=== PATIENT | female | born 1955 | race Caucasian/White ===

== ENCOUNTER 2021-06-19 05:23 | Day surgery (SDC) | payer BC ==
[~2021-06-19] VITALS: Ht 174 cm; Wt 76.7 kg
[2021-06-19] MEDS ORDERED: SYNTHROID0.075 MG/T PO (06:14)
[2021-06-19] MEDS ORDERED: KLOR-CON 1010 MEQ PO (06:14)
[2021-06-19] MEDS ORDERED: PRINIVIL10 MG PO (06:14)
[2021-06-19] MEDS ORDERED: LASIX 20MG TABL20 MG PO (06:15)
[2021-06-19] MEDS ORDERED: MYRBETR50MG PO (06:15)
[2021-06-19] MEDS ORDERED: CENTRUM SILVER1 TAB (06:15)
[2021-06-19] MEDS ORDERED: VITAMINC1000TA PO (06:16)
[2021-06-19] MEDS ORDERED: CALCIUM 600-D 61 TAB PO (06:16)
[2021-06-19] MEDS ORDERED: VITAMIN D31000 I1 PO (06:17)
[2021-06-19] MEDS ORDERED: OMEGA-3 1000 MG1 CAP PO (06:17)
[2021-06-19] MEDS ORDERED: SUPER CALCIUM W1 TA1 PO (06:17)
[2021-06-19] MEDS ORDERED: PHARMASSURE ZIN50 MG PO (06:17)
[2021-06-19] MEDS ORDERED: DIGESTIVE ADVA1 EAC3 PO (06:18)
[2021-06-19] MEDS ORDERED: OSTEO-BI-FLEX 21 TAB PO (06:18)
[2021-06-19] MEDS ORDERED: HAIRSKINNAILS PO (06:18)
[2021-06-19 07:28] VITALS: BP 115/67; PULSE 62; TEMP 97.3
[2021-06-19 08:05] VITALS: BP 136/103; PULSE 75; TEMP 99
[2021-06-19 08:20] VITALS: BP 118/73; PULSE 70
[2021-06-19 08:35] VITALS: BP 110/83; PULSE 64
== END 2021-06-19 09:45 | disposition home or self-care (01) ==
LOC: SDCO 05:23 → EDSTATUS 07:30 → SDCO 09:45
DX: N36.42 Intrinsic sphincter deficiency (ISD) (principal); N39.41 Urge incontinence; R35.0 Frequency of micturition; I10 Essential (primary) hypertension; M19.90 Unspecified osteoarthritis, unspecified site; E03.9 Hypothyroidism, unspecified; Z79.899 Other long term (current) drug therapy; Z79.890 Hormone replacement therapy
CPT/HCPCS: J0690; J1100; J2405; J2704; J7120; L8606